=== PATIENT | male | born 1980 | race Caucasian/White ===

== ENCOUNTER 2020-11-02 08:09 | Emergency (ER) | payer MEDICAID ==
[~2020-11-02] VITALS: Ht 167.6 cm; Wt 80.0 kg
[2020-11-02] MEDS ORDERED: KETOROLAC 30MG/ML VIAL IV STA (08:29)
[2020-11-02] MEDS ORDERED: MORPHINE SULFATE 4 MG/ML CPJ (NOT FOR IM USE) IV STA (08:29)
[2020-11-02] MEDS ORDERED: SODIUM CHLORIDE 0.9% 1,000 ML IV ONE (08:30)
[2020-11-02 09:01] LABS: CHLORIDE 107 mEq/L (98-107)
[2020-11-02 09:02] LABS: BASOPHILS % 0.5 % (0.0-2.0); EOSINOPHILS % 2.3 % (0.0-5.0); HEMATOCRIT. 43.6 % (42.0-52.0); HEMOGLOBIN. 15.5 g/dL (14.0-18.0); LYMPHOCYTES % 41.9 % (20.0-50.0); MEAN CORPUSCULAR HEMOGLOBIN 31.2 pg (28.0-32.0); MEAN CORPUSCULAR VOLUME 87.8 fL (80.0-94.0); MEAN PLATELET VOLUME 7.9 fl (7.4-10.4); NEUTROPHILS % 50.3 % (40.0-76.0); PLATELET 216 x1000/uL (130-400); RED BLOOD CELL COUNT 4.96 mill/uL (4.7-6.1); RED CELL DISTRIBUTION WIDTH 13.2 % (11.6-14.6)
[2020-11-02 09:04] LABS: PROTHROMBIN TIME 10.4 sec (9.6-11.0)
[2020-11-02] MEDS ORDERED: IBUP-2029 MT (09:57)
[2020-11-02] MEDS ORDERED: TAMS-11 MT (09:58)
[2020-11-02 10:32] LABS: CLARITY URINE CLEAR (CLEAR); COLOR URINE YELLOW (YELLOW); KETONES URINE NEGATIVE (NEGATIVE); LEUKOCYTE ESTERASE URINE NEGATIVE (NEGATIVE); NITRITE URINE NEGATIVE (NEGATIVE); OCCULT BLOOD URINE 1+ (NEGATIVE); PH URINE 6.5 (4.5-8.0); PROTEIN URINE NEGATIVE (NEGATIVE); UROBILINOGEN URINE 0.2 E.U./dL (0.2-1.0)
[2020-11-02 12:12] VITALS: BP 119/63
== END 2020-11-02 12:18 | disposition home or self-care (01) ==
LOC: ER 08:09
DX: N13.2 Hydronephrosis with renal and ureteral calculous obstruction (principal)
CPT/HCPCS: 36415; 74176; 80053; 81003; 83690; 85025; 85610; 96361; 96374; 99284; C1893; J1885; J7030; Z7610